=== PATIENT | female | born 1980 | race Caucasian/White ===

== ENCOUNTER 2018-01-05 15:58 | Emergency (ER) | payer OTHER ==
[~2018-01-05] VITALS: Ht 152.4 cm; Wt 88.0 kg
[2018-01-05] MEDS ORDERED: [UNRECOGNIZED DRUG - OTHER] PO (16:11)
[2018-01-05] MEDS ORDERED: TRAMADOL 50 MG50 MG PO (17:02)
[2018-01-05 17:26] VITALS: BP 130/73
== END 2018-01-05 17:26 | disposition home or self-care (01) ==
LOC: M.ERS 15:58
DX: S92.255A Nondisplaced fracture of navicular [scaphoid] of left foot, initial encounter for closed fracture (principal); Z91.041 Radiographic dye allergy status; Z88.0 Allergy status to penicillin; Z88.2 Allergy status to sulfonamides; Z88.1 Allergy status to other antibiotic agents; W18.39XA Other fall on same level, initial encounter; Y93.89 Activity, other specified; Y92.89 Other specified places as the place of occurrence of the external cause; Y99.8 Other external cause status

== ENCOUNTER 2018-01-08 14:23 | Emergency (ER) | payer OTHER ==
[~2018-01-08] VITALS: Ht 154.9 cm; Wt 88.5 kg
[~2018-01-08 14:23] MED LIST: TRAMADOL 50 MG50 MG PO; [UNRECOGNIZED DRUG - OTHER] PO
[2018-01-08] MEDS ORDERED: ACETAMINOPHEN-1 EAC1 PO (17:21)
[2018-01-08] MEDS ORDERED: MOBIC15 MG PO (17:21)
[2018-01-08] MEDS ORDERED: FLEXERIL PO (17:21)
[2018-01-08 17:42] VITALS: BP 139/74
== END 2018-01-08 17:43 | disposition home or self-care (01) ==
LOC: M.ERS 14:23
DX: S92.255A Nondisplaced fracture of navicular [scaphoid] of left foot, initial encounter for closed fracture (principal); M54.5 Low back pain; Z88.0 Allergy status to penicillin; Z88.1 Allergy status to other antibiotic agents; Z88.2 Allergy status to sulfonamides; Z91.041 Radiographic dye allergy status; W18.39XA Other fall on same level, initial encounter; Y93.89 Activity, other specified; Y92.89 Other specified places as the place of occurrence of the external cause; Y99.8 Other external cause status

== ENCOUNTER → 2019-07-24 | Outpatient (CLI) | payer OTHER ==
[~2019-07-24] MED LIST changes: +ACETAMINOPHEN-1 EAC1 PO; +FLEXERIL PO; +MOBIC15 MG PO
== END ==
LOC: M.RAD 15:06
DX: M43.16 Spondylolisthesis, lumbar region (principal); M54.16 Radiculopathy, lumbar region

== ENCOUNTER 2019-10-25 18:18 | Emergency (ER) | payer OTHER ==
[~2019-10-25] VITALS: Ht 152.4 cm; Wt 96.2 kg
[2019-10-25] MEDS ORDERED: ASA81BEC PO (18:43)
[2019-10-25 19:01] LABS: URINE BILIRUBIN NEGATIVE (Negative); URINE BLOOD NEGATIVE (Negative); URINE CLARITY CLEAR; URINE COLOR YELLOW; URINE GLUCOSE-RANDOM NEGATIVE (Negative); URINE KETONES NEGATIVE (Negative); URINE LEUKOCYTES-REFLEX NEGATIVE (Negative); URINE NITRITE-REFLEX NEGATIVE (Negative); URINE PROTEIN NEGATIVE (Negative); URINE UROBILINOGEN 0.2 E.U./dl (0.2-1.0)
[2019-10-25 19:09] LABS: ABSOLUTE BASOPHILS 0.1 thou/uL (0.0-0.2); ABSOLUTE EOSINOPHILS 0.1 thou/uL (0.0-0.7); ABSOLUTE LYMPHOCYTES 3.5 thou/uL (0.8-5.3); ABSOLUTE MONOCYTES 0.5 thou/uL (0.0-1.2); ABSOLUTE NEUTROPHILS 3.7 thou/uL (1.6-8.1); BASOPHILS 0.9 %; EOSINOPHILS 1.4 %; HEMATOCRIT 39.1 % (37.0-47.0); HEMOGLOBIN 13.7 gm/dL (12.0-15.0); LYMPHOCYTES 44.3 %; MCH 32.2 pg (26.0-34.0); MCHC 35.2 g/dL (28.0-37.0); MCV 91.6 fL (80.0-100.0); MONOCYTES 6.8 %; MPV 6.2 fl. (7.2-11.1); NUCLEATED RBCS 0 /100WBC; PLATELET COUNT* 296 thou/uL (150-400); POLYS 46.6 %; RBC 4.27 mil/uL (4.20-5.00); RDW-CV 13.7 % (10.5-14.5)
[2019-10-25 19:16] LABS: CALCIUM 8.5 mg/dL (8.5-10.1); CREATININE 0.9 mg/dL (0.6-1.3); POTASSIUM 3.4 mmol/L (3.5-5.1)
[2019-10-25 19:26] LABS: ALBUMIN 3.8 g/dL (3.4-5.0); TOTAL BILIRUBIN 0.3 mg/dL (<0.1-1.0); TOTAL PROTEIN 7.9 g/dL (6.4-8.2)
[2019-10-25] MEDS ORDERED: ONDANSETRON ODT4 MG PO (19:33)
[2019-10-25 20:06] VITALS: BP 145/57
--- NOTE | 2019-10-26 08:28 | EKG ---
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: [facility] : 1980 Requested By: Davon Richard Order Number: [id number] MD: Santana Kerns Measurements Intervals [place] Rate: 78 P: 22 MA: 135 QRS: 11 QRSD: 99 T: 7 QT: 389 QTc: 444 Interpretive Statements Sinus rhythm Low voltage, precordial leads Borderline T abnormalities, anterior leads No previous ECG available for comparison Electronically Signed On 10-26-2019 8:25:59 CDT by Santana Kerns [email or web address] <ELECTRONICALLY SIGNED> By: Santana Kerns MD, [facility] 10/26/19 0825 1845 1845 Santana Kerns MD, [facility] /EPI
== END 2019-10-25 20:07 | disposition home or self-care (01) ==
LOC: M.ERS 18:18
PROVIDERS: Physician Assistant
DX: T67.5XXA Heat exhaustion, unspecified, initial encounter (principal); R25.2 Cramp and spasm; R11.2 Nausea with vomiting, unspecified; R07.89 Other chest pain; Z88.2 Allergy status to sulfonamides; Z88.0 Allergy status to penicillin; Z88.1 Allergy status to other antibiotic agents; Z88.8 Allergy status to other drugs, medicaments and biological substances; Z90.710 Acquired absence of both cervix and uterus; Z90.49 Acquired absence of other specified parts of digestive tract; X30.XXXA Exposure to excessive natural heat, initial encounter; Y93.89 Activity, other specified; Y92.89 Other specified places as the place of occurrence of the external cause; Y99.8 Other external cause status

== ENCOUNTER 2020-07-16 18:28 | Emergency (ER) | payer OTHER ==
[~2020-07-16] VITALS: Ht 152.4 cm; Wt 95.3 kg
[~2020-07-16 18:28] MED LIST changes: +ASA81BEC PO; +ONDANSETRON ODT4 MG PO
[2020-07-16] MEDS ORDERED: METFORMIN HCL500 M3 PO (18:53)
[2020-07-16] MEDS ORDERED: COMPLERA TABLE1 EACH PO (18:53)
[2020-07-16] MEDS ORDERED: WOMEN'S DAILY1 EACH PO (18:53)
[2020-07-16 19:27] LABS: ABSOLUTE BASOPHILS 0.1 thou/uL (0.0-0.2); ABSOLUTE EOSINOPHILS 0.1 thou/uL (0.0-0.7); ABSOLUTE LYMPHOCYTES 4.6 thou/uL (0.8-5.3); ABSOLUTE MONOCYTES 0.6 thou/uL (0.0-1.2); ABSOLUTE NEUTROPHILS 4.7 thou/uL (1.6-8.1); BASOPHILS 0.6 %; EOSINOPHILS 1.3 %; HEMATOCRIT 41.7 % (37.0-47.0); HEMOGLOBIN 14.4 gm/dL (12.0-15.0); LYMPHOCYTES 45.5 %; MCH 31.2 pg (26.0-34.0); MCHC 34.6 g/dL (28.0-37.0); MCV 90.2 fL (80.0-100.0); MPV 6.3 fl. (7.2-11.1); NUCLEATED RBCS 0 /100WBC; PLATELET COUNT* 278 thou/uL (150-400); POLYS 46.6 %; RBC 4.62 mil/uL (4.20-5.00); RDW-CV 13.1 % (10.5-14.5); WBC 10.1 thou/uL (4.0-11.0)
[2020-07-16 19:41] LABS: CALCIUM 9.4 mg/dL (8.5-10.1); CREATININE 0.7 mg/dL (0.6-1.3); POTASSIUM 3.4 mmol/L (3.5-5.1)
[2020-07-16 19:45] LABS: ALBUMIN 4.3 g/dL (3.4-5.0); MAGNESIUM 1.9 mg/dL (1.8-2.4); TOTAL BILIRUBIN 0.3 mg/dL (<0.1-1.0); TOTAL PROTEIN 7.9 g/dL (6.4-8.2)
[2020-07-16 19:46] LABS: BE -4.6 mmol/L (-2 to +3); PCO2 24.3 mmHg (35.0-45.0); pH 7.465 (7.340-7.450)
[2020-07-16 19:46] LABS: INFLUENZA A ANTIGEN Negative (Negative); INFLUENZA B ANTIGEN Negative (Negative)
[2020-07-16 21:17] LABS: URINE BILIRUBIN NEGATIVE (Negative); URINE BLOOD NEGATIVE (Negative); URINE CLARITY CLEAR; URINE COLOR YELLOW; URINE GLUCOSE-RANDOM NEGATIVE (Negative); URINE KETONES 1+ (Negative); URINE LEUKOCYTES-REFLEX NEGATIVE (Negative); URINE NITRITE-REFLEX NEGATIVE (Negative); URINE PROTEIN TRACE (Negative); URINE SPECIFIC GRAVITY 1.025 (1.005-1.030); URINE UROBILINOGEN 0.2 E.U./dl (0.2-1.0)
[2020-07-16 22:42] VITALS: BP 167/67
--- NOTE | 2020-07-17 15:31 | EKG ---
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[employer] : 1980 Requested By: Nakia Mcghee Order Number: [id number] MD: Kian Balbuena Measurements Intervals [place] Rate: 103 P: 29 TN: 137 QRS: 28 QRSD: 101 T: 7 QT: 355 QTc: 465 Interpretive Statements Sinus tachycardia Borderline T wave abnormalities Baseline wander in lead(s) V1 Compared to ECG 10/25/2019 18:45:32 Sinus rate has increased T-wave abnormality still present Electronically Signed On 07-17-2020 15:30:53 [employer]NAGER by Kian Balbuena [email or web address] <ELECTRONICALLY SIGNED> By: Kian Balbuena MD, [facility] 07/17/20 1530 1907 190 Kian Balbuena MD, [facility] /EPI
== END 2020-07-16 22:43 | disposition home or self-care (01) ==
LOC: M.ERS 18:28
PROVIDERS: Personal Emergency Response Attendant
DX: B34.9 Viral infection, unspecified (principal); Z20.822 Contact with and (suspected) exposure to COVID-19; Z91.041 Radiographic dye allergy status; Z88.0 Allergy status to penicillin; Z88.2 Allergy status to sulfonamides; Z88.1 Allergy status to other antibiotic agents; Z90.49 Acquired absence of other specified parts of digestive tract; Z90.710 Acquired absence of both cervix and uterus; Z85.41 Personal history of malignant neoplasm of cervix uteri

== ENCOUNTER 2020-12-27 14:51 | Emergency (ER) | payer OTHER ==
[~2020-12-27] VITALS: Ht 152.4 cm; Wt 95.3 kg
[~2020-12-27 14:51] MED LIST changes: +COMPLERA TABLE1 EACH PO; +METFORMIN HCL500 M3 PO; +WOMEN'S DAILY1 EACH PO
[2020-12-27] MEDS ORDERED: METFORMIN HCL500 M3 PO (15:15)
[2020-12-27] MEDS ORDERED: COMPLERA TABLE1 EACH PO (15:15)
[2020-12-27 16:54] LABS: ABSOLUTE EOSINOPHILS 0.1 thou/uL (0.0-0.7); ABSOLUTE LYMPHOCYTES 3.4 thou/uL (0.8-5.3); ABSOLUTE MONOCYTES 0.4 thou/uL (0.0-1.2); ABSOLUTE NEUTROPHILS 3.6 thou/uL (1.6-8.1); BASOPHILS 0.5 %; EOSINOPHILS 1.3 %; HEMATOCRIT 41.3 % (37.0-47.0); HEMOGLOBIN 13.8 gm/dL (12.0-15.0); LYMPHOCYTES 44.5 %; MCH 30.1 pg (26.0-34.0); MCHC 33.5 g/dL (28.0-37.0); MCV 89.6 fL (80.0-100.0); MONOCYTES 5.6 %; NUCLEATED RBCS 0 /100WBC; PLATELET COUNT* 279 thou/uL (150-400); POLYS 48.1 %; RDW-CV 13.3 % (10.5-14.5); WBC 7.6 thou/uL (4.0-11.0)
[2020-12-27 16:56] LABS: URINE BILIRUBIN NEGATIVE (Negative); URINE BLOOD NEGATIVE (Negative); URINE CLARITY CLEAR; URINE COLOR YELLOW; URINE GLUCOSE-RANDOM NEGATIVE (Negative); URINE KETONES NEGATIVE (Negative); URINE LEUKOCYTES-REFLEX NEGATIVE (Negative); URINE NITRITE-REFLEX NEGATIVE (Negative); URINE PROTEIN NEGATIVE (Negative); URINE SPECIFIC GRAVITY >= 1.030 (1.005-1.030); URINE UROBILINOGEN 0.2 E.U./dl (0.2-1.0)
[2020-12-27 17:03] LABS: CALCIUM 8.6 mg/dL (8.5-10.1); CREATININE 0.7 mg/dL (0.6-1.3); POTASSIUM 3.9 mmol/L (3.5-5.1)
[2020-12-27 17:07] LABS: ALBUMIN 4.3 g/dL (3.4-5.0); TOTAL BILIRUBIN 0.6 mg/dL (<0.1-1.0); TOTAL PROTEIN 7.8 g/dL (6.4-8.2)
[2020-12-27] MEDS ORDERED: FLEXERIL PO ×2 (17:52→18:03)
[2020-12-27] MEDS ORDERED: MEDROLDOSEPACK PO (17:52)
[2020-12-27] MEDS ORDERED: APAP W/CODEINE1 TA2 PO ×2 (17:52→18:03)
[2020-12-27] MEDS ORDERED: ONDANSETRON HCL4 M2 PO (18:05)
[2020-12-27 18:16] VITALS: BP 123/54
== END 2020-12-27 18:17 | disposition home or self-care (01) ==
LOC: M.ERS 14:51
PROVIDERS: Physician Assistant
DX: R10.84 Generalized abdominal pain (principal); M54.5 Low back pain; Z91.041 Radiographic dye allergy status; Z88.0 Allergy status to penicillin; Z88.2 Allergy status to sulfonamides; Z88.1 Allergy status to other antibiotic agents; Z90.49 Acquired absence of other specified parts of digestive tract; Z90.710 Acquired absence of both cervix and uterus; Z85.41 Personal history of malignant neoplasm of cervix uteri